=== PATIENT | male | born 1985 | race Two or more races ===

== ENCOUNTER 2022-03-12 22:17 | Emergency (ER) | payer BC ==
[2022-03-13] MEDS ORDERED: Ketorolac 30 MG/ML SDV IM STA (00:54)
[2022-03-13] MEDS ORDERED: Ondansetron 4 MG Tab.DIS PO ONE (00:54)
[2022-03-13 01:53] LABS: CORONAVIRUS COVID-19 NAA NEGATIVE (NEGATIVE); INFLUENZA A NAA NEGATIVE (NEGATIVE); INFLUENZA B NAA NEGATIVE (NEGATIVE)
== END 2022-03-13 02:33 | disposition home or self-care (01) ==
LOC: MW.ED 22:17
DX: B34.9 Viral infection, unspecified (principal); Z20.822 Contact with and (suspected) exposure to COVID-19
CPT/HCPCS: 0240U; 96372; 99284; A9270; J1885; 99283

== ENCOUNTER 2022-12-10 18:47 | Emergency (ER) | payer BC | END 2022-12-10 19:30 | disposition left against medical advice (07) | LOC: MW.ED 18:47 | DX: Z53.21 Procedure and treatment not carried out due to patient leaving prior to being seen by health care provider (principal) ==

== ENCOUNTER 2022-12-11 20:44 | Emergency (ER) | payer BC ==
[2022-12-11] MEDS ORDERED: Ciprofloxacin in D5W 400 MG in Premix Bag 1 BAG IV SCH ×2 (21:45)
[2022-12-11 22:31] LABS: CARBON DIOXIDE,CO2 27.2 mmol/L (21.0-32.0); POTASSIUM,K 3.7 mmol/L (3.5-5.1)
[2022-12-11 23:09] LABS: C. TRACHOMATIS BY PCR NOT DETECTED; N. GONORRHOEAE BY PCR NOT DETECTED
== END 2022-12-12 00:03 | disposition home or self-care (01) ==
LOC: MW.ED 20:44
DX: N39.0 Urinary tract infection, site not specified (principal)
CPT/HCPCS: 36415; 74176; 80053; 81001; 85025; 87086; 87491; 87591; 96365; 99284; J0744; 87088; 87186; 99283

== ENCOUNTER 2023-12-23 13:02 | Emergency (ER) | payer SELFPAY | END 2023-12-23 14:40 | disposition home or self-care (01) | LOC: MW.ED 13:02 | DX: K11.20 Sialoadenitis, unspecified (principal); Z79.899 Other long term (current) drug therapy | CPT/HCPCS: 99282; 99283 ==

== ENCOUNTER 2023-12-25 09:55 | Emergency (ER) | payer SELFPAY | END 2023-12-25 10:32 | disposition home or self-care (01) | LOC: MW.ED 09:55 | DX: K11.20 Sialoadenitis, unspecified (principal); K04.7 Periapical abscess without sinus; Z79.899 Other long term (current) drug therapy | CPT/HCPCS: 99283 ==